=== PATIENT | male | born 1955 | race Caucasian/White ===

== ENCOUNTER 2017-01-31 08:00 | Outpatient (CLI) | payer MEDICARE, OTHER ==
--- NOTE | 2017-01-31 09:24 | MRI Report ---
EXAM: MRI CERVICAL SPINE WITHOUT CONTRAST EXAM DATE: 01/31/2017 08:55 AM. CLINICAL HISTORY: Cervical radiculopathy. Recurrent neck pain. Previous cervical spine fusion. Numbne ss and tingling. COMPARISONS: 02/15/2011. TECHNIQUE: Multiplanar, multisequence T1-weighted and fluid-sensitive sequences of the cervical spine without contrast. Other: None. FINDINGS: Neurologic Structures: The visualized posterior fossa structures are unremarkable. No signal abnormal ity in the visualized spinal cord. Alignment: Normal. No scoliosis or spondylolisthesis. Bone Marrow: Amorphous marrow edema of the right C2-C3 facet joints and adjacent soft tissue. Marrow edema posteriorly on both sides of the C2-C3 disk space, asymmetric, right greater than left. Interspace Levels/Facets: C1-C2: Patent central canal. Mild chronic-appearing hypertrophic degenerative changes around the odon toid process. C2-C3: Progressive moderate degenerative disk disease. Anterior marginal spurring. Broad-based disk b ulge. Minimal to mild central stenosis without cord compression. Facet arthropathy is relatively mild on the left but now is severe on the right, right side facet arthropathy is markedly progressive in the interval. Potentially severe foraminal stenosis on the right has developed. The left foramen is p atent. C3-C4: Status post anterior diskectomy and fusion. Patent central canal. Ill-defined probably stenoti c left neural foramen. Similar findings were present previously. C4-C5: Status post anterior diskectomy and fusion. Patent central canal. Again seen are findings of i ll-defined neural foramina, likely chronic residual degenerative stenosis. C5-C6: Status post anterior diskectomy and fusion. Patent central canal. Stable findings of residual degenerative foraminal stenosis bilaterally. C6-C7: Status post anterior diskectomy and fusion. Patent central canal. Again seen are findings of c hronic bilateral degenerative foraminal stenosis. C7-T1: Mild to moderate degenerative disk disease. Mild marginal spurring. Broad-based disk bulge wit h ventral thecal sac indentation but no central stenosis or cord impingement. Again seen are similar findings of mild to moderate right greater than left bilateral degenerative foraminal stenosis. T1-T2: Mild to moderate degenerative disk disease and facet arthropathy. Broad-based bulge. Marginal spurring. Patent central canal. Moderately prominent-appearing bilateral foraminal stenosis. T2-T3: Findings are incompletely visualized. There is facet arthropathy and at least a mild degree of bilateral foraminal stenosis but the central canal is patent. Musculature: Mild to moderate diffuse fatty atrophy. Other: No focal prevertebral soft tissue swelling or edema. Some images are motion limited. Detailed evaluation anteriorly is limited by susceptibility artifact from anterior plate and screw fixation apparatus that extends from C3 inferiorly through C7. IMPRESSION: 1. Progressive degenerative disk disease and facet arthropathy on the right at C2-C3, the right alia en now appears severely stenotic. 2. Chronic-appearing degenerative changes as noted at C7-T1, T1-T2 and partially visualized posterior ly at T2-T3. 3. No significant central stenosis, cord compression or focal cord signal abnormality. 4. Grossly stable chronic degenerative and postoperative changes at C3-C4 through C6-C7. [facility] Referring Provider Line: [phone] SITE ID: [id number]
== END 2017-01-31 08:01 | disposition home or self-care (01) ==
LOC: DI 08:00
DX: M50.31 Other cervical disc degeneration, high cervical region (principal); M43.02 Spondylolysis, cervical region; M50.33 Other cervical disc degeneration, cervicothoracic region; M51.34 Other intervertebral disc degeneration, thoracic region; Z98.890 Other specified postprocedural states
CPT/HCPCS: 72141

== ENCOUNTER 2018-02-19 06:16 | Day surgery (SDC) | payer MEDICARE, OTHER ==
[2018-02-19] MEDS ORDERED: LACTATED RINGERS 1,000 ML IV ONE (06:48)
[2018-02-19] MEDS ORDERED: fentaNYL 250 MCG/5 ML VIAL IVP ONE (07:32)
[2018-02-19] MEDS ORDERED: MIDAZOLAM 2 MG/2 ML VIAL IVP ONE (07:32)
[2018-02-19] MEDS ORDERED: PROPOFOL 200 MG/20 ML VIAL IVP ONE (08:00)
[2018-02-19 09:17] VITALS: BP 123/59
== END 2018-02-19 06:17 | disposition home or self-care (01) ==
LOC: SDS 06:16
PROVIDERS: ATTEND Internal Medicine Gastroenterology
PROC: 0DBP8ZX Excision of Rectum, Via Natural or Artificial Opening Endoscopic, Diagnostic (ICD-10-PCS; 2018-02-19)
PROC: 0DBN8ZX Excision of Sigmoid Colon, Via Natural or Artificial Opening Endoscopic, Diagnostic (ICD-10-PCS; principal; 2018-02-19 07:30)
DX: Z12.11 Encounter for screening for malignant neoplasm of colon (principal); K57.30 Diverticulosis of large intestine without perforation or abscess without bleeding; K62.1 Rectal polyp; K63.5 Polyp of colon; E11.9 Type 2 diabetes mellitus without complications; J44.9 Chronic obstructive pulmonary disease, unspecified; I10 Essential (primary) hypertension; E78.5 Hyperlipidemia, unspecified; G47.30 Sleep apnea, unspecified; Z79.84 Long term (current) use of oral hypoglycemic drugs; F17.210 Nicotine dependence, cigarettes, uncomplicated
CPT/HCPCS: 45380; 45385; J3010; J7120; 88305

== ENCOUNTER 2023-02-23 13:01 | Emergency (ER) | payer MEDICARE, OTHER ==
[2023-02-23 13:11] VITALS: BP 145/50
--- NOTE | 2023-02-23 13:11 | ED Physician Documentation ---
PD HPI URI - Stated complaint Stated Complaint: BODY PX - Chief complaint Chief Complaint: General - History obtained from History obtained from: Patient - History of Present Illness Timing - onset: Today, Last night Timing duration: Days (1) Timing details: Gradual onset, Still present Associated symptoms: No: Fever, Chills, Swollen nodes, Chest pain Contributing factors: Travel, Other (The patient has had several years of generalized arthritis pains evaluated by endocrinology and diagnosed with ap parent systemic gout. He is on chronic prednisone 5 mg daily as well as colchicine and another gout medicine he does not remember the name. Occasional flares.). 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 He will get flareups periodically with heavier work at particular joints. He had been doing yard work and lifting lawnmower etc. yesterday and now has significant pain in the knee and elbow.) Recently seen: Not recently seen PD PAST MEDICAL HISTORY - Past Medical History Cardiovascular: Hypertension, High cholesterol Respiratory: Sleep apnea Endocrine/Autoimmune: Type 2 diabetes GI: Colon polyps : None Psych: Depression Musculoskeletal: None Derm: None - Past Surgical History General: Colonoscopy - Present Medications Home Medications: Ambulatory Orders Medication Instructions Recorded Confirmed Amitriptyline [Elavil] 25 mg PO HS 02/18/18 02/18/18 Doxazosin Mesylate [Cardura Xl] 8 mg PO DAILY 02/18/18 02/18/18 Metformin HCl 1,000 mg PO BID 02/18/18 02/18/18 Metoprolol Tartrate 50 mg PO BID 02/18/18 02/18/18 Rosuvastatin Calcium [Crestor] 20 mg PO DAILY 02/18/18 02/18/18 SITagliptin [Januvia] 100 mg PO DAILY 02/18/18 02/18/18 Zolpidem Tartrate [Ambien] 10 mg PO DAILY 02/18/18 02/18/18 glipiZIDE [Glipizide] 10 mg PO BID 02/18/18 02/18/18 lisinopriL [Lisinopril] 5 mg PO DAILY 02/18/18 02/18/18 oxyCODONE [Roxicodone] 5 mg PO Q6H PRN #15 tablet 02/23/23 - Allergies Allergies/Adverse Reactions: Allergies Allergy/AdvReac Type Severity Reaction Status Date / Time No Known Drug Allergies Allergy Verified 02/23/23 13:04 PD ED PE NORMAL - Vitals Vital signs reviewed: Yes - General General: Alert and oriented X 3, Well developed/nourished, Other (he does appear in discomfort particularly from right knee, elbow and shoulder. No redness of the joints. Mild swelling anterior right knee. ) - Derm Derm: Normal color, Warm and dry - Extremities Extremities: No edema, No calf tenderness / cord, Other (tender to touch and movement of anterior right knee, right lateral elbow and anterior right shoulder. ) - Neuro Neuro: No motor deficit, No sensory deficit Results - Vitals Vitals: Vital Signs - 24 hr 02/23/23 13:04 Temperature 36.5 C Heart Rate 85 Respiratory 16 Rate Blood Pressure 145/50 H O2 Saturation 98 Oxygen O2 Source Room air PD Medical Decision Making - ED course Complexity details: considered differential (His description of evaluation and treatment of systemic arthritis (he states it is not rheumatoid nor lupus but apparently had gout type process). Seems reasonable to have a flareup. He states he previously was treated with Toradol and sometimes pain medicine and a short bump in his steroids.), d/w patient, d/w family (spouse) Departure - Departure Disposition: 01 Home, Self Care Clinical Impression: Arthritis pain, Chronic inflammatory arthritis Condition: Stable Record reviewed to determine appropriate education?: Yes Prescriptions: oxyCODONE [Roxicodone] 5 mg PO Q6H PRN #15 tablet PRN Reason: Pain 5-7 Comments: You were given an injection of Toradol here which is an NSAID anti-inflammatory. You are given an extra dose of steroid anti-inflammatory as well. I would suggest increasing your daily prednisone from the 5 mg normal up to 15 mg for the next 3 days and then 10 mg for 3 days and then back to the 5 mg. Add Tylenol every 4-6 hours if needed for pain and consider taking it regularly 4 times daily for the next week. This would be 500 to 650 mg per dose 4 times daily would keep you in the recommended dose range per day. To that add oxycodone every 6 hours if needed for worse pain. Activity as tolerated. Recheck if not improving well over the next few days and return if worse if needed. I sent your prescription to [facility] pharmacy in [place]. I am prescribing a short course of narcotic pain medication for you. These are potentially dangerous and addictive medications that should be used carefully. These medications may constipate you. Take an [id number] stool softener such as docusate twice daily with plenty of water while taking these medications. If you go 24 hours without a bowel movement, take [id number] [id number], per package instructions. Do not drink or drive while taking these medications. If you received narcotic or sedating medications while in the emergency department do not drive for 24 hours. Store this medication in a safe, secure place and out of reach of children. It is a violation of federal law to give or sell this medication to another person or to use in a manner other than prescribed. The ED will not refill narcotic prescriptions, including prescriptions lost or stolen. You can dispose of unwanted medications at the [facility]'s office or at several pharmacies such as [facility]. Discharge Date/Time: 02/23/23 13:51
[2023-02-23] MEDS ORDERED: CHERRY SYRUP 10 ML UDC PO ONE (13:31)
[2023-02-23] MEDS ORDERED: DEXAMETHASONE 10 MG/ML VIAL PO STA (13:31)
[2023-02-23] MEDS ORDERED: KETOROLAC 30 MG/ML VIAL IM STA (13:31)
[2023-02-23] MEDS ORDERED: oxyCODONE 5 MG TABLET PO STA (13:32)
== END 2023-02-23 13:51 | disposition home or self-care (01) ==
LOC: ED 13:01
DX: M13.861 Other specified arthritis, right knee (principal); M13.821 Other specified arthritis, right elbow
CPT/HCPCS: 96372; 99283; A9270